=== PATIENT | female | born 1950 | race Two or more races ===

== ENCOUNTER 2022-06-10 11:12 | Emergency (ER) | payer OTHER ==
[~2022-06-10] VITALS: Ht 152.4 cm; Wt 69.9 kg
[2022-06-10 11:33] VITALS: BP 129/90
[2022-06-10] MEDS ORDERED: ACET-1158 PO (14:17)
[2022-06-10] MEDS ORDERED: AMOX-277 PO (14:17)
== END 2022-06-10 15:51 | disposition home or self-care (01) ==
LOC: ER 11:12
DX: U07.1 COVID-19 (principal); J06.9 Acute upper respiratory infection, unspecified; I10 Essential (primary) hypertension; E78.5 Hyperlipidemia, unspecified; Z90.49 Acquired absence of other specified parts of digestive tract
CPT/HCPCS: 36415; 71046; 87804

== ENCOUNTER 2022-09-27 10:47 | Emergency (ER) | payer OTHER ==
[~2022-09-27] VITALS: Ht 149.9 cm; Wt 67.0 kg
[~2022-09-27 10:47] MED LIST: ACET-1158 PO; AMOX-277 PO
[2022-09-27 11:36] VITALS: BP 161/92
[2022-09-27] MEDS ORDERED: ACETAMINOPHEN 500 MG TAB PO ONE (12:15)
[2022-09-27] MEDS ORDERED: ACET-1080 PO (13:12)
[2022-09-27] MEDS ORDERED: CEPH-510 PO (13:12)
== END 2022-09-27 13:20 | disposition home or self-care (01) ==
LOC: ER 10:47
DX: S32.018A Other fracture of first lumbar vertebra, initial encounter for closed fracture (principal); S80.12XA Contusion of left lower leg, initial encounter; I10 Essential (primary) hypertension; E78.5 Hyperlipidemia, unspecified; Z90.49 Acquired absence of other specified parts of digestive tract; Z79.899 Other long term (current) drug therapy; W01.0XXA Fall on same level from slipping, tripping and stumbling without subsequent striking against object, initial encounter; Y93.89 Activity, other specified; Y92.89 Other specified places as the place of occurrence of the external cause; Y99.8 Other external cause status
CPT/HCPCS: 72100